=== PATIENT | male | born 1935 | race Caucasian/White ===

== ENCOUNTER 2019-12-07 06:58 | Outpatient (REF) | payer MEDICARE, MEDICAID, SELFPAY ==
[2019-12-07 07:26] LABS: Hematocrit 31.3 % (42-52); Hemoglobin 10.2 g/dl (14.0-18.0); Mean Corpuscular HGB Conc 32.6 g/dl (31.0-36.0); Mean Corpuscular Hemoglobin 33.3 pg (27.0-33.0); Mean Corpuscular Volume 102.3 fL (80-98); Mean Platelet Volume 8.9 fL (9.4-12.4); Platelet Count 157 X10*3/uL (160-400); Red Blood Count 3.06 X10*6/uL (4.60-5.80); Red Cell Distribution Width 13.1 % (11.0-16.0); White Blood Count 4.5 X10*3/uL (4.8-10.8)
[2019-12-07 07:45] LABS: Glucose Urine UA NEG (NEG); Leukocyte Esterase Urine 3+ (NEG); Nitrite Urine POS (NEG); Specific Gravity - Urine 1.015 (1.005-1.025); Urine Blood 1+ (NEG); Urine Ketones NEG (NEG); Urine Protein NEG (NEG-TRACE)
[2019-12-07 07:46] LABS: Appearance Urine CLOUDY; Color Urine YELLOW
[2019-12-07 07:58] LABS: Anion Gap 9 (12-20); Bacteria Urine 3+ /LPF; Blood Urea Nitrogen 13 mg/dL (9-16); Calcium 8.2 mg/dL (8.4-10.2); Carbon Dioxide 26 mmol/L (22-29); Chloride 103 mmol/L (96-108); Estimated Glomerular Filt Rate 26; Mucus Urine 1+ /LPF; Potassium 4.2 mmol/l (3.3-5.1); Sodium 134 mmol/L (135-145); WBC Urine TNTC /HPF (0-4)
[2019-12-07 08:19] LABS: Vitamin D 25-OH Total 29.5 ng/mL (>30)
[2019-12-10 16:32] LABS: Calcium (PTHI) 8.4 mg/dL (8.6-10.3); PTHI 67 pg/mL (14-64)
== END 2019-12-07 06:59 | disposition home or self-care (01) ==
LOC: HO.MMNH3L 06:58
PROVIDERS: Visit Provider Family Medicine
DX: N39.0 Urinary tract infection, site not specified (principal); N17.9 Acute kidney failure, unspecified; N18.9 Chronic kidney disease, unspecified
CPT/HCPCS: 36415; 80051; 81001; 82306; 82310; 82565; 83970; 84520; 85027; 87086; 87088; 87186

== ENCOUNTER 2019-12-26 06:54 | Outpatient (REF) | payer SELFPAY ==
[2019-12-26 08:17] LABS: Alanine Aminotransferase 10 U/L (0-40); Albumin Level 3.4 g/dL (3.5-5.0); Alkaline Phosphatase 96 U/L (39-117); Anion Gap 12 (12-20); Aspartate Amino Transferase 15 U/L (5-37); Bilirubin Direct 0.2 mg/dL (0.0-0.5); Bilirubin Total 0.6 mg/dL (0.0-1.0); Blood Urea Nitrogen 14 mg/dL (9-16); Calcium 8.2 mg/dL (8.4-10.2); Carbon Dioxide 24 mmol/L (22-29); Chloride 104 mmol/L (96-108); Estimated Glomerular Filt Rate 26; Glucose Random 86 mg/dL (60-115); Potassium 4.1 mmol/l (3.3-5.1); Sodium 136 mmol/L (135-145); Total Protein 5.4 g/dL (6.5-8.0)
[2019-12-26 08:37] LABS: Thyroid Stimulating Hormone 0.68 mIU/mL (0.32-4.0)
== END 2019-12-26 06:55 | disposition home or self-care (01) ==
LOC: HO.MMNH3L 06:54
PROVIDERS: Visit Provider Family Medicine
DX: I48.0 Paroxysmal atrial fibrillation (principal); N17.9 Acute kidney failure, unspecified
CPT/HCPCS: 80048; 80076; 84443

== ENCOUNTER 2019-12-31 13:00 | Outpatient (REF) | payer MEDICARE, MEDICAID, SELFPAY | END 2019-12-31 13:01 | LOC: HO.LNP 13:00 | PROVIDERS: Visit Provider Family Medicine | DX: Z20.828 Contact with and (suspected) exposure to other viral communicable diseases (principal) | CPT/HCPCS: U0003 ==